=== PATIENT | female | born 1990 | race African-American/Black ===

== ENCOUNTER 2017-02-13 06:11 | Emergency (ER) | payer OTHER ==
[~2017-02-13] VITALS: Ht 154.9 cm; Wt 54.4 kg
[2017-02-13] MEDS ORDERED: IBUPROFEN 600MG TABLET PO ONE (07:00)
[2017-02-13 07:04] VITALS: BP 130/76
== END 2017-02-13 07:19 | disposition home or self-care (01) ==
LOC: ER 06:14
DX: L03.012 Cellulitis of left finger (principal); F17.200 Nicotine dependence, unspecified, uncomplicated
CPT/HCPCS: 99283

== ENCOUNTER 2017-02-17 18:04 | Emergency (ER) | payer OTHER ==
[~2017-02-17] VITALS: Ht 154.9 cm; Wt 52.0 kg
[2017-02-17 18:30] VITALS: BP 100/43
[2017-02-17] MEDS ORDERED: LIDOCAINE HCL 1% 20ML VIAL (Pyxis) INJ INFIL ONE (19:45)
== END 2017-02-17 21:34 | disposition home or self-care (01) ==
LOC: ER 20:12
DX: L03.011 Cellulitis of right finger (principal); J45.909 Unspecified asthma, uncomplicated
CPT/HCPCS: 10060; 99283; J3490; Z7610

== ENCOUNTER 2017-10-22 09:23 | Emergency (ER) | payer SELFPAY ==
[~2017-10-22] VITALS: Ht 154.9 cm; Wt 52.0 kg
[2017-10-22 09:32] VITALS: BP 126/81
== END 2017-10-22 13:37 | disposition left against medical advice (07) ==
LOC: ER 09:49
DX: R05 Cough (principal); Z53.21 Procedure and treatment not carried out due to patient leaving prior to being seen by health care provider

== ENCOUNTER 2018-10-20 09:16 | Emergency (ER) | payer SELFPAY ==
[~2018-10-20] VITALS: Ht 165.1 cm; Wt 52.0 kg
[2018-10-20 09:23] VITALS: BP 96/52
== END 2018-10-20 10:18 | disposition home or self-care (01) ==
LOC: ER 09:16
DX: L25.9 Unspecified contact dermatitis, unspecified cause (principal)
CPT/HCPCS: 81025; 99283

== ENCOUNTER 2023-01-29 12:48 | Emergency (ER) | payer OTHER ==
[~2023-01-29] VITALS: Ht 154.9 cm; Wt 55.0 kg
[2023-01-29 13:09] VITALS: BP 120/79
[2023-01-29] MEDS ORDERED: KETOROLAC 30MG/ML VIAL IV STA (13:20)
[2023-01-29 14:31] LABS: BASOPHILS % 0.7 % (0.0-2.0); EOSINOPHILS % 3.4 % (0.0-5.0); HEMATOCRIT. 37.4 % (36.0-48.0); HEMOGLOBIN. 12.7 g/dL (12.0-16.0); LYMPHOCYTES % 22.3 % (20.0-50.0); MEAN CORPUSCULAR HEMOGLOBIN 30.1 pg (28.0-32.0); MEAN CORPUSCULAR VOLUME 88.4 fL (81.0-99.0); MONOCYTES % 6.3 % (2.0-8.0); NEUTROPHILS % 67.3 % (40.0-76.0); PLATELET 266 x1000/uL (130-400); RED BLOOD CELL COUNT 4.23 mill/uL (4.2-5.4); RED CELL DISTRIBUTION WIDTH 13.9 % (11.6-14.6)
[2023-01-29 14:35] LABS: CHLORIDE 107 mEq/L (98-107)
[2023-01-29 14:37] LABS: INR 1.1; PROTHROMBIN TIME 11.5 sec (9.6-11.0)
[2023-01-29] MEDS ORDERED: TOPUD PO (21:38)
[2023-01-29] MEDS ORDERED: IBUP-2028 MT (21:38)
[2023-01-29] MEDS ORDERED: AMOX1TAB16 MT (21:38)
== END 2023-01-29 15:15 | disposition left against medical advice (07) ==
LOC: ER 12:48
DX: R22.0 Localized swelling, mass and lump, head (principal); J45.909 Unspecified asthma, uncomplicated; Z98.890 Other specified postprocedural states
CPT/HCPCS: 36415; 80053; 81025; 85025; 99283

== ENCOUNTER 2023-01-29 16:11 | Emergency (ER) | payer MEDICAID, OTHER ==
[~2023-01-29] VITALS: Ht 154.9 cm; Wt 60.0 kg
[2023-01-29 17:13] LABS: BASOPHILS % 0.6 % (0.0-2.0); EOSINOPHILS % 2.5 % (0.0-5.0); HEMATOCRIT. 34.4 % (36.0-48.0); HEMOGLOBIN. 11.9 g/dL (12.0-16.0); LYMPHOCYTES % 21.8 % (20.0-50.0); MEAN CORPUSCULAR HEMOGLOBIN 30.7 pg (28.0-32.0); MONOCYTES % 6.7 % (2.0-8.0); NEUTROPHILS % 68.4 % (40.0-76.0); PLATELET 243 x1000/uL (130-400); RED BLOOD CELL COUNT 3.87 mill/uL (4.2-5.4); RED CELL DISTRIBUTION WIDTH 13.9 % (11.6-14.6)
[2023-01-29] MEDS ORDERED: IOHEXOL-300 100 ML BOTTLE ONE (17:17)
[2023-01-29 17:23] LABS: CHLORIDE 108 mEq/L (98-107)
[2023-01-29] MEDS ORDERED: AMPICILLIN SOD/SULBACTAM NA 3 G in SODIUM CHLORIDE 0.9% 100 ML IV SCH (19:30)
[2023-01-29] MEDS ORDERED: AMOX1TAB16 MT (21:38)
[2023-01-29] MEDS ORDERED: TOPUD PO (21:38)
[2023-01-29] MEDS ORDERED: IBUP-2028 MT (21:38)
[2023-01-29 22:29] VITALS: BP 119/75
== END 2023-01-29 22:34 | disposition home or self-care (01) ==
LOC: ER 16:11 → CANBEDREQ 01-30 16:10
DX: L02.01 Cutaneous abscess of face (principal); J45.909 Unspecified asthma, uncomplicated; Z98.890 Other specified postprocedural states
CPT/HCPCS: 36415; 70487; 70491; 80053; 81025; 83605; 85025; 87040; 96365; 96366; 99285; J0295; J7050; Q9967; Z7610